=== PATIENT | female | born 1985 | race Caucasian/White ===

== ENCOUNTER 2017-02-13 17:39 | Emergency (ER) | payer MEDICAID ==
[~2017-02-13] VITALS: Ht 157.5 cm; Wt 69.5 kg
[~2017-02-13 17:39] MED LIST: BACTDS PO; BUTA1CAP39 PO; CYCL5TAB PO; HYDR-3498 PO; IBUP-1542 PO; ONDA4TAB35 PO
[2017-02-13 17:45] VITALS: Ht 157.5 cm; Wt 69.5 kg
[2017-02-13] MEDS ORDERED: AMOX1TAB10 PO (18:05)
[2017-02-13] MEDS ORDERED: HYDR-906 PO (18:05)
[2017-02-13] MEDS ORDERED: IBUP-1542 PO (18:05)
--- NOTE | 2017-02-13 18:12 | ERD ---
ER Documentation Chief Complaint Date/Time DATE: 02/13/17 TIME: 18:08 Chief Complaint right ear pain x 3 days; no fever or cough HPI Patient is a 31-year-old female complaining of right ear pain for 3 days. Patient denies any trauma. Denies any fever, headache, nausea, vomiting , blurred vision, hearing problems or ear discharge. Denies any medical history and had an appendectomy years ago. She did not take any medications for symptom relief. ROS All systems reviewed and are negative except as per history of present illness. Medications Home Meds Active Scripts Hydrocodone/Acetaminophen ([place] 5-325 Tablet) 1 Each Tablet, 1 TAB PO Q6H Y for PAIN, #7 TAB Prov:GRICELDA VALENTINE 02/13/17 Ibuprofen* (Motrin*) 600 Mg Tab, 600 MG PO Q6H Y for PAIN AND OR ELEVATED TEMP, #30 TAB Prov:GRICELDA VALENTINE 02/13/17 Amoxicillin/Potassium Clav (Amox-Clav 875-125 mg Tablet) 875-125 mg Tab, 1 TAB PO BID for 10 Days, #20 TAB Prov:GRICELDA VALENTINE 02/13/17 Cyclobenzaprine Hcl* (Cyclobenzaprine Hcl*) 5 Mg Tablet, 5 MG PO Q8H Y for MUSCLE SPASMS, #20 TAB Prov:KAREN PACHECO NP 04/05/16 Ibuprofen* (Motrin*) 600 Mg Tab, 600 MG PO Q6H Y for PAIN AND OR ELEVATED TEMP, #30 TAB Prov:KAREN PACHECO NP 04/05/16 Ondansetron Hcl* (Zofran* ODT) 4 mg -ODT Tab.disper, 4 MG PO Q8 Y for NAUSEA AND /OR VOMITING, #20 TAB Prov:KAREN PACHECO NP 04/05/16 Eqnxjncybbmqg-Ieqakiioba-Tvfzudab-Codeine* (Fioricet w/ Codeine*) [id number]-[id number]-08- 30MG Capsule, 1 CAP PO Q6H Y for PAIN LEVEL 1-5, #20 CAP Prov:KAREN PACHECO NP 04/05/16 Hydrocodone Bit-Acetaminophen* ([place]*) 5-325 Mg Tab, 1 TAB PO q6h Y for PAIN LEVEL 6-10 for 5 Days, TAB Prov:GEORGIANA SÁCNHEZ MD 01/26/15 Sulfamethoxazole-Trimethoprim* (Bactrim* DS) 800-160 Mg Tab, 1 TAB PO BID for 7 Days, TAB Prov:GEORGIANA SÁNCHEZ MD 01/26/15 Allergies Allergies: Coded Allergies: No Known Allergy (Verified , 02/03/15) PMhx/Soc History of Surgery: Yes (APPENDECTOMY ,CESARIAN SECTION 2011) Anesthesia Reaction: No Hx Neurological Disorder: No Hx Respiratory Disorders: No Hx Cardiac Disorders: No Hx Psychiatric Problems: No Hx Miscellaneous Medical Probl: No Hx Alcohol Use: No Hx Substance Use: No Hx Tobacco Use: No Physical Exam Vitals Vital Signs Date Time Temp Pulse Resp B/P Pulse Ox O2 Delivery O2 Flow Rate FiO2 02/13/17 17:45 99.1 83 18 112/66 99 Physical Exam Physical Exam CONST: Well-developed, well-nourished, in no acute distress. Nontoxic in appearance. HEENT: Atraumatic. Normal conjunctiva. EOM intact. Erythematous right TM without any perforation or exudate. External ear is normal. Clear oropharnyx without erythema. No uvular deviation. Moist mucous membranes. Supple neck. No meningismus. No submandibular induration. RESP: Clear to auscultation bilaterally. No wheezing. CARDIO: Regular rate and rhythm, no murmurs. ABD: Soft, non tender, non distended. Normal bowel sounds. No McBurney's point tenderness. No guarding or rigidity. No peritoneal signs. SKIN: No petechiae or rashes. BACK: No midline or flank tenderness. EXT: No cyanosis or edema. Distal pulses equal and bilateral. NEURO: Awake and alert, appropriate for age. Procedures/MDM EMERGENCY DEPARTMENT COURSE/MEDICAL DECISION MAKING This is a third 1-year-old female who comes to the emergency room secondary to complaints of right ear pain for 3 days. Patient is afebrile. Right TM is erythematous without any perforation or exudate. My primary diagnosis is right otitis media. Secondary diagnosis right ear pain Differential diagnoses considered but not limited to pneumonia, mastoiditis, bronchitis, influenza, upper respiratory infection, asthma, pharyngitis, peritonsillar abscess, otitis media, otitis externa.. Pt is hemodynamically stable upon reassessment. The patient was discharged for outpatient management with a prescription for Augmentin, [place] and ibuprofen. The patient was advised to followup with their PMD in 1-2 days and to return to the Emergency Department if there are any new or worsening symptoms. The patient understood and agreed with the diagnosis, treatment and plan. Patient is stable for discharge at this time. Departure Diagnosis: Primary Impression: Otitis media Otitis media type: unspecified Laterality: right Chronicity: unspecified Qualified Code: H66.91 - Right otitis media, unspecified chronicity, unspecified otitis media type Additional Impression: Ear pain, right Condition: Stable Patient Instructions: Otitis Media, Abx Tx (Adult) [facility] Usted se gonzalez hecho un examen mdico de control que le indica que no est en sary condicin que requiera tratamiento urgente en el Departamento de Emergencia. Un estudio ms profundo y el tratamiento de anne condicin pueden esperar sin ningn riesgo hasta que usted sea atendida/o en el consultorio de anne mdico o sary cl ayanna. Es responsabilidad suya arreglar sary js para el seguimiento del reynold. MANEJO DE CONDICIONES NO URGENTES EN EL FUTURO 1) Si usted tiene un mdico de atencin primaria: Usted debera llamar a anne mdico de atencin primaria antes de venir al departamento de emergencia. Despus de las horas de consultorio, anne doctor o anne asociado/a est disponible por telfono. El mdico o enfermero de nicole en el servicio telefnico puede asesorarle por latisha medio para atender el problema, o reynold contrario se puede programar sary js. 2) Si usted no tiene un mdico de atencin primaria: Llame al mdico o clnica de referencia que aparece abajo jyothi las horas de consultorio para hacer sary js para que le vean. CLINICAS: [facility] [phone] [facility] [place] [address] [phone] [facility] [phone] [place] [id number] [phone] [place] [id number] [phone] [facility]. [phone] [address] [facility] () Usted se gonzalez hecho un examen mdico de control que le indica que no est en sary condicin que requiera tratamiento urgente en el Departamento de Emergencia. Un estudio ms profundo y el tratamiento de anne condicin pueden esperar sin ningn riesgo hasta que usted sea atendida/o en el consultorio de anne mdico o sary cl ayanna. Es responsabilidad suya arreglar sary js para el seguimiento del renyold. MANEJO DE CONDICIONES NO URGENTES EN EL FUTURO 1) Si usted tiene un mdico de atencin primaria: Usted debera llamar a anne mdico de atencin primaria antes de venir al departamento de emergencia. Despus de las horas de consultorio, anne doctor o anne asociado/a est disponible por telfono. El mdico o enfermero de nicole en el servicio telefnico puede asesorarle por latisha medio para atender el problema, o reynold contrario se puede programar sary js. 2) Si usted no tiene un mdico de atencin primaria: Llame al mdico o condado institucions de referencia que aparece abajo jyothi las horas de consultorio para hacer sary js para que le vean. SI USTED NO PUEDE PAGAR PARA ENEIDA UN MEDICO puede ir a: [facility] [id number] [place] [address] [facility] [address] [place] [address] [facility] [address] [place] [address] [facility] [address], [place] [id number] Additional Instructions: Llame a anne mdico de atencin primaria maana para hacer sary js jyothi los pr ximos eden 1-2. Volver al Departamento de la emergencia inmediatamente si tiene cualquier s ntoma nuevo o que empeora. [place] todos los medicamentos maria m lo indique. GRICELDA VALENTINE Feb 13, 2017 18:12
== END 2017-02-13 18:37 | disposition home or self-care (01) ==
LOC: FTE 17:39
DX: H66.91 Otitis media, unspecified, right ear (principal)
CPT/HCPCS: 99284